=== PATIENT | female | born 1965 | race American Indian/Alaskan Native ===

== ENCOUNTER 2020-07-28 18:48 | Observation (INO) | payer OTHER ==
[2020-07-28] MEDS ORDERED: ASPIRIN 325 MG TAB PO ONE (19:39)
[2020-07-28 20:11] LABS: Basophils # (Auto) 0.1 K/mm3 (0.0-0.1); Basophils % (Auto) 0.6 % (0.0-1.8); Eosinophils # (Auto) 0.2 K/mm3 (0.0-0.4); Eosinophils % (Auto) 1.4 % (0.0-4.3); Hematocrit 42.7 % (30.3-42.9); Hemoglobin 14.2 gm/dl (10.1-14.3); Lymphocytes # (Auto) 2.2 K/mm3 (1.2-5.4); Lymphocytes % (Auto) 19.7 % (13.4-35.0); Mean Corpuscular HGB Conc 33 % (30-34); Mean Corpuscular Volume 88 fl (79-97); Monocytes # (Auto) 0.9 K/mm3 (0.0-0.8); Monocytes % (Auto) 7.9 % (0.0-7.3); Platelet Count 308 K/mm3 (140-440); Red Blood Count 4.87 M/mm3 (3.65-5.03); Red Cell Distribution Width 14.2 % (13.2-15.2)
--- NOTE | 2020-07-28 20:17 | XRay Report ---
CHEST 2 VIEWS INDICATION / CLINICAL INFORMATION: MAIN. Chest pain. FINDINGS: SUPPORT DEVICES: None. HEART / MEDIASTINUM: No significant abnormality. LUNGS / PLEURA: No significant pulmonary or pleural abnormality. No pneumothorax. ADDITIONAL FINDINGS: No significant additional findings. IMPRESSION: 1. No acute findings. Signer Name: Dorian Cassidy MD Signed: 07/28/2020 8:13 PM Workstation Name: [id number]
[2020-07-28 20:34] LABS: BUN/Creatinine Ratio 20; Blood Urea Nitrogen 16 mg/dL (7-17); Calcium 9.5 mg/dL (8.4-10.2); Hemolysis Index 1
--- NOTE | 2020-07-28 21:09 | Emergency Department Report ---
HPI - General Chief Complaint: Chest Pain Time Seen by Provider: 07/28/20 20:38 - HPI HPI: Room 21 The patient is a 54-year-old female present with a chief complaint of chest pressure. Patient states she is been having intermittent substernal chest pre ssure since March. Patient states her pressure is associated with shortness of breath, diaphoresis and nausea without vomiting. The patient went to her primary care physician's office today and mentioned the pain. EKG performed at the primary physician's office shows possible Wellens sign and T wave inversions in the patient was sent to the ED for further management. Patient currently complains of chest pressure and gives a score of 5/10. Patient states she is never had a stress test or cardiac catheterization ED Past Medical Hx - Past Medical History Previous Medical History?: Yes Hx Hypertension: Yes - Surgical History Past Surgical History?: Yes Additional Surgical History: Ectopic - Family History Family history: no significant - Social History Smoking Status: Former Smoker (None x1 month) Substance Use Type: None (Denies illicit drug use) ED Review of Systems ROS: Stated complaint: ABNORMAL EKG Other details as noted in HPI Constitutional: diaphoresis Respiratory: shortness of breath, SOB with exertion Cardiovascular: chest pain Endocrine: no symptoms reported Gastrointestinal: nausea. denies: vomiting Physical Exam - Physical Exam Vital Signs: Vital Signs 07/28/20 19:37 Temperature 98.1 F Pulse Rate 81 Respiratory 18 Rate Blood Pressure 187/92 O2 Sat by Pulse 98 Oximetry Physical Exam: GENERAL: The patient is well-developed well-nourished female lying on stretcher not appearing to be in acute distress. [] HEENT: Normocephalic. Atraumatic. Extraocular motions are intact. Patient has moist mucous membranes. NECK: Supple. Trachea midline CHEST/LUNGS: Clear to auscultation. There is no respiratory distress noted. HEART/CARDIOVASCULAR: Regular. There is no tachycardia. There is no gallop rub or murmur. ABDOMEN: Abdomen is soft, nontender. Patient has normal bowel sounds. There is no abdominal distention. SKIN: There is no rash. There is no edema. There is no diaphoresis. NEURO: The patient is awake, alert, and oriented. The patient is cooperative. The patient has normal speech MUSCULOSKELETAL: There is no evidence of acute injury. ED Course Vital Signs 07/28/20 19:37 Temperature 98.1 F Pulse Rate 81 Respiratory 18 Rate Blood Pressure 187/92 O2 Sat by Pulse 98 Oximetry ED Medical Decision Making - Lab Data Result diagrams: 07/28/20 19:47 07/28/20 19:47 Laboratory Tests 07/28/20 07/28/20 19:47 19:47 WBC 11.4 H RBC 4.87 Hgb 14.2 Hct 42.7 MCV 88 MCH 29 MCHC 33 RDW 14.2 Plt Count 308 Lymph % (Auto) 19.7 [place] % (Auto) 7.9 H Eos % (Auto) 1.4 Baso % (Auto) 0.6 Lymph # 2.2 [place] # 0.9 H Eos # 0.2 Baso # 0.1 Seg Neutrophils % 70.4 H Seg Neutrophils # 8.0 H Sodium 142 Potassium 3.7 Chloride 105.0 Carbon Dioxide 23 Anion Gap 18 BUN 16 Creatinine 0.8 Estimated GFR > 60 BUN/Creatinine Ratio 20 Glucose 128 H Calcium 9.5 Troponin T < 0.010 - EKG Data -: EKG Interpreted by Me EKG shows normal: sinus rhythm Rate: normal - EKG Data When compared to previous EKG there are: previous EKG unavailable Interpretation: nonspecific ST-T wave kayode (T wave inversion in lead V3, possible Wellens sign V4, V5) - Radiology Data Radiology results: report reviewed (Chest x-ray), image reviewed (Chest x-ray) interpreted by me: Chest x-ray-no focal infiltrates, no pneumothorax, no foreign body Findings [facility] [address] [place] [address] XRay Report Signed Patient: ÓSCAR CHOI MR#: [id number] : 1965 Acct:[id number] Age/Sex: 54 / F ADM Date: 07/28/20 Loc: ED Attending Dr: Ordering Physician: ED MD MELISSA Date of Service: 07/28/20 Procedure(s): XR chest routine 2V Accession Number(s): [id number] cc: ED MD MELISSA Fluoro Time In Minutes: CHEST 2 VIEWS INDICATION / CLINICAL INFORMATION: MAIN. Chest pain. FINDINGS: SUPPORT DEVICES: None. HEART / MEDIASTINUM: No significant abnormality. LUNGS / PLEURA: No significant pulmonary or pleural abnormality. No pneumothorax. ADDITIONAL FINDINGS: No significant additional findings. IMPRESSION: 1. No acute findings. Signer Name: Dorian Cassidy MD Signed: 07/28/2020 8:13 PM Workstation Name: [id number] Transcribed By: BC Dictated By: Dorian Cassidy MD Electronically Authenticated By: Dorian Cassidy MD Signed Date/Time: 07/28/202012 DD/ 12 TD/TT: - Differential Diagnosis ACS, pericarditis, GERD Critical care attestation.: If time is entered above; I have spent that time in minutes in the direct care of this critically ill patient, excluding procedure time. ED Disposition Clinical Impression: Chest pain, T wave inversion in EKG Disposition: OP ADMIT IP TO THIS HOSP Is pt being admited?: Yes Does the pt Need Aspirin: Yes Condition: Fair Instructions: Chest Pain (ED) Time of Disposition: 21:13 (Hospitalist paged (Dr Collins))
[2020-07-28] MEDS ORDERED: ONDANSETRON 4 MG/2 ML INJ IV ONE (21:12)
[2020-07-28] MEDS ORDERED: NITROGLYCERIN 2% OINT 1 GM TP ONE (21:12)
[2020-07-28] MEDS ORDERED: fentaNYL 100 MCG/2 ML INJ IV ONE ×2 (21:12→22:30)
[2020-07-28] MEDS ORDERED: fentaNYL 100 MCG/2 ML INJ ONE (22:30)
[2020-07-28] MEDS ORDERED: ACETAMINOPHEN 325 MG TAB PO PRN (22:45)
[2020-07-28] MEDS ORDERED: MORPHINE 4 MG/1 ML INJ IV PRN (22:45)
[2020-07-28] MEDS ORDERED: ONDANSETRON 4 MG/2 ML INJ IV PRN (22:45)
[2020-07-28] MEDS ORDERED: MAGNESIUM HYDROXIDE (MOM) ORAL LIQD UDC PO PRN (22:45)
--- NOTE | 2020-07-28 22:59 | History and Physical Report ---
History of Present Illness Date of examination: 07/28/20 Date of admission: 07/28/20 21:34 Chief complaint: Chest pain History of present illness: 54-year-old -[place] female with history of hypertension and a former smoker presenting to the emergency room today complaining of chest pain. Chest pain felt like pressure was substernal and has been intermittent for about 3 months. Pain got worse today and decided to report to the emergency room. She has had associated shortness of breath nausea and diaphoresis. She denies any vomiting, no fever or chills, no headache or dizziness. There is no no relieving or exacerbating factor. Patient went to her primary care physician office today and a chest pain was evaluated. EKG done showed some abnormality with possible Wellens sign and T wave inversion and thereafter was sent to the emergency room for further evaluation. On a scale of 10 pain was said to be about 5/10 in severity. Work-up in the emergency room so far has been unremarkable. Patient has not had any cardiac work-up in the past. Past History Past Medical History: hypertension Past Surgical History: Other (Surgery for Ectopic ) Social history: smoking (Former Smoker) Family history: hypertension (Grand Mother) Medications and Allergies Allergies Allergy/AdvReac Type Severity Reaction Status Date / Time bee pollen Allergy Anaphylaxis Verified 07/28/20 19:39 Review of Systems Constitutional: no fever, no chills Ears, nose, mouth and throat: no nasal congestion, no sore throat Respiratory: no cough, no shortness of breath Gastrointestinal: no abdominal pain, no nausea, no vomiting, no diarrhea Genitourinary Female: no pelvic pain, no flank pain, no dysuria Musculoskeletal: no neck pain, no low back pain Integumentary: no rash, no pruritis Neurological: no headaches, no confusion Exam - Constitutional Vitals: Temp Pulse Resp BP Pulse Ox 98.1 F 80 18 177/105 98 07/28/20 19:37 07/28/20 21:32 07/28/20 19:37 07/28/20 21:32 07/28/20 19:37 General appearance: Present: no acute distress, well-nourished - EENT Eyes: Present: PERRL, EOM intact, scleral icterus ENT: hearing intact, clear oral mucosa, dentition normal - Neck Neck: Present: supple, normal ROM - Respiratory Respiratory effort: normal Respiratory: bilateral: CTA - Cardiovascular Rhythm: regular Heart Sounds: Present: S1 & S2. Absent: gallop, systolic murmur, diastolic murmur, rub - Extremities Extremities: no ischemia, pulses intact, pulses symmetrical, No edema, Full ROM Peripheral Pulses: within normal limits - Abdominal General gastrointestinal: Present: soft, non-tender, non-distended, normal bowel sounds. Absent: mass - Integumentary Integumentary: Present: clear, warm, dry. Absent: rash - Musculoskeletal Musculoskeletal: strength equal bilaterally - Psychiatric Psychiatric: appropriate mood/affect, intact judgment & insight, memory intact, cooperative - Neurologic Neurologic: CNII-XII intact, no focal deficits, moves all extremities HEART Score - HEART Score History: Slightly suspicious EKG: Non-specific Age: 45-65 Risk factors: 1-2 risk factors Troponin: Troponin T < 0.010 ng/mL (0.00-0.029) 07/28/20 19:47 Troponin: < normal limit (Heart Score =2) HEART Score: 3 Results - Labs CBC & Chem 7: 07/28/20 23:36 07/28/20 23:36 Labs: Abnormal lab results 07/28/20 07/28/20 Range/Units 19:47 19:47 WBC 11.4 H (4.5-11.0) K/mm3 [place] % (Auto) 7.9 H (0.0-7.3) % [place] # 0.9 H (0.0-0.8) K/mm3 Seg Neutrophils % 70.4 H (40.0-70.0) % Seg Neutrophils # 8.0 H (1.8-7.7) K/mm3 Glucose 128 H (65-100) mg/dL Assessment and Plan - Patient Problems (1) Chest pain Current Visit: Yes Status: Acute Plan to address problem: Patient admitted and placed on telemetry. Will check serial cardiac enzymes. Patient placed on aspirin, sublingual nitroglycerin and IV morphine as needed for chest pain. Patient will be scheduled for stress test. We will place a consult to cardiology for further evaluation. (2) T wave inversion in EKG Current Visit: Yes Status: Acute Plan to address problem: We will monitor EKG and await further evaluation by cardiology. (3) DVT prophylaxis Current Visit: Yes Status: Acute Plan to address problem: Patient placed on subcutaneous Lovenox. (4) Full code status Current Visit: Yes Status: Acute
[2020-07-29 00:09] LABS: BUN/Creatinine Ratio 18; Blood Urea Nitrogen 16 mg/dL (7-17); Calcium 9.2 mg/dL (8.4-10.2); Hemolysis Index 5
[2020-07-29 00:56] LABS: Hematocrit 42.7 % (30.3-42.9); Mean Corpuscular HGB Conc 33 % (30-34); Mean Corpuscular Volume 92 fl (79-97); Platelet Count 246 K/mm3 (140-440); Red Blood Count 4.63 M/mm3 (3.65-5.03); Red Cell Distribution Width 13.9 % (13.2-15.2)
[2020-07-29] MEDS: ACETAMINOPHEN 325 MG TAB PO PRN ×3 (01:01→14:45)
[2020-07-29 03:46] LABS: Chol/HDL Ratio 2.8 %
[2020-07-29 08:09] LABS: Basophils # (Auto) 0.1 K/mm3 (0.0-0.1); Basophils % (Auto) 0.9 % (0.0-1.8); Eosinophils # (Auto) 0.3 K/mm3 (0.0-0.4); Eosinophils % (Auto) 3.4 % (0.0-4.3); Hematocrit 38.6 % (30.3-42.9); Lymphocytes # (Auto) 2.3 K/mm3 (1.2-5.4); Lymphocytes % (Auto) 28.5 % (13.4-35.0); Mean Corpuscular HGB Conc 34 % (30-34); Mean Corpuscular Volume 90 fl (79-97); Platelet Count 259 K/mm3 (140-440); Red Cell Distribution Width 13.7 % (13.2-15.2)
[2020-07-29 08:17] LABS: INR 0.98 (0.87-1.13)
[2020-07-29] MEDS ORDERED: REGADENOSON 0.4 MG/5 ML INJ IV ONE ×2 (08:25→08:30)
[2020-07-29 08:33] LABS: BUN/Creatinine Ratio 21; Blood Urea Nitrogen 23 mg/dL (7-17); Calcium 8.9 mg/dL (8.4-10.2); Hemolysis Index 5
--- NOTE | 2020-07-29 13:37 | Consultation ---
History of Present Illness Consult date: 07/29/20 Consult reason: chest pain, hypertension History of present illness: This patient is a 54-year-old woman with a long history of hypertension, which she states has been poorly managed in the outpatient setting largely due to her noncompliance. She states that yesterday, she finally went to doctor's office specifically to get refills for her blood pressure management. During her visit to the doctors, she reported some intermittent, atypical non-exertional chest pain which she states is of longstanding, this prompted an EKG and a recommendation for ambulance transfer to the emergency room. The patient was otherwise well, and since admission he has had no chest pain, no shortness of breath and no cardiac complaints. The ECG done in the primary doctor's office as well as in the hospital showing normal sinus rhythm with nonspecific anterior T wave changes. Today, after a rule out OR protocol, she was recommended to undergo a Lexiscan thallium stress test. An echocardiogram also ordered by the medical service shows normal left ventricular systolic function with ejection fraction 60 to 65%, mild to moderate concentric left ventricular hypertrophy consistent with her chronic hypertension, no significant valvular abnormalities. Past History Past Medical History: hypertension Past Surgical History: Other (Surgery for Ectopic ) Social history: smoking (Former Smoker) Family history: hypertension (Grand Mother) Medications and Allergies Allergies Allergy/AdvReac Type Severity Reaction Status Date / Time bee pollen Allergy Anaphylaxis Verified 07/28/20 19:39 Active Meds: Active Medications Acetaminophen (Tylenol) 650 mg PO Q4H PRN PRN Reason: Pain MILD(1-3)/Fever >100.5/VALENZUELA Last Admin: 07/29/20 04:46 Dose: 650 mg Documented by: Aspirin (Ecotrin) 325 mg PO QDAY VENESSA Enoxaparin Sodium (Enoxaparin) 40 mg SUB-Q QDAY@2200 VENESSA; Protocol Magnesium Hydroxide (Milk Of Magnesia) 30 ml PO Q4H PRN PRN Reason: Constipation Morphine Sulfate (Morphine) 2 mg IV Q5MIN PRN PRN Reason: Chest Pain Nitroglycerin (Nitrostat) 0.4 mg SL Q5M PRN PRN Reason: Chest Pain Ondansetron HCl (Zofran) 4 mg IV Q8H PRN PRN Reason: Nausea And Vomiting Sodium Chloride (Sodium Chloride Flush Syringe 10 Ml) 10 ml IV BID VENESSA Sodium Chloride (Sodium Chloride Flush Syringe 10 Ml) 10 ml IV PRN PRN PRN Reason: LINE FLUSH Review of Systems Cardiovascular: chest pain, no orthopnea, no palpitations, no rapid/irregular heart beat, no edema, no syncope, no lightheadedness, no shortness of breath Physical Examination Vital Signs Temp Pulse Resp BP Pulse Ox 98.1 F 81 18 187/92 98 07/28/20 19:37 07/28/20 19:37 07/28/20 19:37 07/28/20 19:37 07/28/20 19:37 General appearance: no acute distress HEENT: Positive: PERRL Neck: Positive: neck supple Cardiac: Positive: Reg Rate and Rhythm Lungs: Positive: Decreased Breath Sounds Neuro: Positive: Grossly Intact Abdomen: Positive: Soft Female genitourinary: deferred Skin: Positive: Clear Extremities: Absent: edema Results 07/29/20 07:14 07/29/20 07:14 Coagulation 07/29/20 Range/Units 07:14 PT 13.1 (12.2-14.9) Sec. INR 0.98 (0.87-1.13) Lipids 07/28/20 Range/Units 23:36 Triglycerides 98 (2-149) mg/dL Cholesterol 154 (50-199) mg/dL HDL Cholesterol 55 (40-59) mg/dL Cholesterol/HDL Ratio 2.80 % CBC 07/28/20 07/28/20 07/29/20 Range/Units 19:47 23:36 07:14 WBC 11.4 H 10.3 8.0 (4.5-11.0) K/mm3 RBC 4.87 4.63 4.30 (3.65-5.03) M/mm3 Hgb 14.2 14.0 13.0 (10.1-14.3) gm/dl Hct 42.7 42.7 38.6 (30.3-42.9) % Plt Count 308 246 259 (140-440) K/mm3 Lymph # 2.2 Strategic Debriefing Specialist 2.3 (1.2-5.4) K/mm3 [place] # 0.9 H Strategic Debriefing Specialist 1.0 H (0.0-0.8) K/mm3 Eos # 0.2 Strategic Debriefing Specialist 0.3 (0.0-0.4) K/mm3 Baso # 0.1 Strategic Debriefing Specialist 0.1 (0.0-0.1) K/mm3 Comprehensive Metabolic Panel 07/28/20 07/28/20 07/29/20 Range/Units 19:47 23:36 07:14 Sodium 142 141 141 (137-145) mmol/L Potassium 3.7 3.7 4.0 (3.6-5.0) mmol/L Chloride 105.0 104.6 103.0 (98-107) mmol/L Carbon Dioxide 23 22 26 (22-30) mmol/L BUN 16 16 23 H (7-17) mg/dL Creatinine 0.8 0.9 1.1 (0.6-1.2) mg/dL Glucose 128 H 161 H 92 (65-100) mg/dL Calcium 9.5 9.2 8.9 (8.4-10.2) mg/dL EKG interpretations - Telemetry EKG Rhythm: Sinus Rhythm Assessment and Plan - Patient Problems (1) Abnormal ECG Current Visit: Yes Status: Acute Plan to address problem: Patient's nonspecific T wave abnormalities on ECG likely due to repolarization changes of left ventricular hypertrophy. We will proceed with a Lexiscan thallium stress test as ordered, for further evaluation. (2) Atypical chest pain Current Visit: Yes Status: Acute Plan to address problem: Chest pain is atypical, of longstanding, we will proceed with a Lexiscan thallium stress test for further assessment. (3) Chronic hypertension Current Visit: Yes Status: Acute Plan to address problem: Recommend optimal medical therapy for blood pressure control and management.
[2020-07-29] MEDS: ASPIRIN EC 325 MG TAB PO SCH (14:45)
[2020-07-29] MEDS: NITROGLYCERIN 0.4 MG TAB SUBL SL PRN ×2 (17:47→21:05)
--- NOTE | 2020-07-29 18:39 | Progress Note ---
Assessment and Plan - Patient Problems (1) Abnormal ECG Current Visit: Yes Status: Acute Plan to address problem: Patient abnormal EKG with some T wave inversions. Echocardiogram unremarkable. Scheduled to have Lexiscan done. Discharge patient after results. (2) Atypical chest pain Current Visit: Yes Status: Acute Plan to address problem: Currently chest pain-free no shortness of breath no nausea no vomiting. Cardiac isoenzymes unremarkable. Blood pressure has maintained optimal control today. (3) Chronic hypertension Current Visit: Yes Status: Acute Plan to address problem: Patient blood pressure has been well controlled without medications today 127/85. Will advance medications as tolerated. Subjective Date of service: 07/29/20 Principal diagnosis: Chest pain Interval history: Patient 54-year-old with a history of hypertension tobacco presents with atypical chest pain associated with some shortness of breath diaphoresis and nausea. Patient relates to being noncompliant with medications. Patient went to primary care physician was found to have abnormal EKG. Patient therefore sent to the ED. Upon evaluation patient did not have any pain denies shortness of breath denied dyspnea on exertion. Was placed on aspirin and work-up for Lexiscan and echocardiogram. Patient initial enzymes negative and no changes on access clerk. Objective - Constitutional Vitals: Vital Signs - 12hr 07/29/20 07/29/20 07/29/20 07:36 11:41 12:47 Temperature 97.9 F Pulse Rate 79 Respiratory 18 Rate Blood Pressure 116/71 129/82 117/78 O2 Sat by Pulse 96 Oximetry 07/29/20 07/29/20 07/29/20 12:50 12:51 12:52 Temperature Pulse Rate Respiratory Rate Blood Pressure 125/77 116/69 127/76 O2 Sat by Pulse Oximetry 07/29/20 07/29/20 07/29/20 12:54 12:55 16:23 Temperature 98.2 F Pulse Rate 97 H Respiratory 18 Rate Blood Pressure 122/74 135/67 127/63 O2 Sat by Pulse 97 Oximetry 07/29/20 17:47 Temperature Pulse Rate 97 H Respiratory Rate Blood Pressure 127/63 O2 Sat by Pulse Oximetry General appearance: Present: no acute distress, well-nourished - EENT Eyes: PERRL, EOM intact ENT: hearing intact, clear oral mucosa Ears: bilateral: normal - Neck Neck: supple, normal ROM - Respiratory Respiratory effort: normal Respiratory: bilateral: CTA - Breasts Breasts: normal - Cardiovascular Rhythm: regular Heart Sounds: Present: S1 & S2. Absent: gallop, rub Extremities: pulses intact, No edema, normal color, Full ROM - Gastrointestinal General gastrointestinal: Present: soft, non-tender, non-distended, normal bowel sounds - Genitourinary Female genitourinary: normal - Integumentary Integumentary: clear, warm, dry - Musculoskeletal Musculoskeletal: 1, strength equal bilaterally - Neurologic Neurologic: moves all extremities - Psychiatric Psychiatric: memory intact, appropriate mood/affect, intact judgment & insight - Labs CBC & Chem 7: 07/29/20 07:14 07/29/20 07:14 Labs: Abnormal lab results 07/28/20 07/28/20 07/28/20 Range/Units 19:47 19:47 23:36 WBC 11.4 H (4.5-11.0) K/mm3 [place] % (Auto) 7.9 H (0.0-7.3) % [place] # 0.9 H (0.0-0.8) K/mm3 Seg Neutrophils % 70.4 H (40.0-70.0) % Seg Neutrophils # 8.0 H (1.8-7.7) K/mm3 BUN (7-17) mg/dL Glucose 128 H 161 H (65-100) mg/dL 07/29/20 07/29/20 Range/Units 07:14 07:14 WBC (4.5-11.0) K/mm3 [place] % (Auto) 12.0 H (0.0-7.3) % [place] # 1.0 H (0.0-0.8) K/mm3 Seg Neutrophils % (40.0-70.0) % Seg Neutrophils # (1.8-7.7) K/mm3 BUN 23 H (7-17) mg/dL Glucose (65-100) mg/dL HEART Score - HEART Score EKG: Non-specific Age: 45-65 Risk factors: 1-2 risk factors Troponin: Troponin T < 0.010 ng/mL (0.00-0.029) 07/29/20 07:14 Troponin: < normal limit (Heart Score =2)
--- NOTE | 2020-07-29 21:42 | Treadmill Report ---
THALLIUM STRESS TEST LEFT VENTRICLE: Left ventricular chamber size is within normal spread. Perfusion study demonstrates homogeneous uptake of the tracer in all segments, no defects identified. There is normal apical thinning. Gated analysis demonstrates normal left ventricular systolic function with ejection fraction 70%. CONCLUSION: Normal myocardial perfusion study. JOB# [id number] CA/NTS
[2020-07-29] MEDS ORDERED: ENOXAPARIN 40 MG/0.4 ML INJ SUB-Q SCH (22:00)
[2020-07-30] MEDS ORDERED: NITROGLYCERIN 2% OINT 1 GM TP ONE (00:19)
[2020-07-30] MEDS: ACETAMINOPHEN 325 MG TAB PO PRN ×2 (01:56→10:14)
[2020-07-30 04:35] VITALS: BP 135/83
[2020-07-30] MEDS: ASPIRIN EC 325 MG TAB PO SCH (10:16)
--- NOTE | 2020-07-30 10:32 | Discharge Summary ---
Providers - Providers Date of Admission: 07/28/20 21:34 Date of discharge: 07/30/20 Attending physician: JOSUE BLAS 07/28/20 22:46 Consult to Cardiology [CONS] Routine Consulting Provider: KHUSHBU WEST Reason For Exam: chest pain Primary care physician: [facility] Hospitalization Condition: Good Hospital course: Patient presented with some shortness of breath and abnormal EKG. Presented to ER follow-up for abnormal EKG. Patient was ruled out via cardiac isoenzymes. Patient also had echocardiogram which was unremarkable ejection fraction 66 5%. Patient had Lexiscan that was done was unremarkable as well. Patient atypical chest pain thought to be secondary to gastroesophageal reflux disease. Patient will be given prescription for PPI. She already has a prescription for PPI. Will fill this at the clinic. [facility] medical clinic. Disposition: TO HOME OR SELFCARE - Discharge Diagnoses (1) Abnormal ECG Status: Acute Comment: Normal Lexiscan. Unremarkable echocardiogram. Noncardiac. (2) Atypical chest pain Status: Resolved (3) Chronic hypertension Status: Acute Comment: Patient explained she should be more compliant with her medications. She has prescription for lisinopril that she will continue. Core Measure Documentation - Palliative Care Palliative Care/ Comfort Measures: Not Applicable - Core Measures Any of the following diagnoses?: none Exam - Constitutional Vitals: Temp Pulse Resp BP Pulse Ox 98.2 F 88 18 135/83 95 07/30/20 04:04 07/30/20 04:04 07/30/20 04:04 07/30/20 04:04 07/30/20 04:04 General appearance: Present: no acute distress, well-nourished - EENT Eyes: Present: PERRL ENT: hearing intact, clear oral mucosa - Neck Neck: Present: supple, normal ROM - Respiratory Respiratory effort: normal Respiratory: bilateral: CTA - Cardiovascular Heart Sounds: Present: S1 & S2. Absent: rub, click - Extremities Extremities: pulses symmetrical, No edema Peripheral Pulses: within normal limits - Abdominal General gastrointestinal: Present: soft, non-tender, non-distended, normal bowel sounds Female genitourinary: Present: normal - Integumentary Integumentary: Present: clear, warm, dry - Musculoskeletal Musculoskeletal: gait normal, strength equal bilaterally - Psychiatric Psychiatric: appropriate mood/affect, intact judgment & insight - Neurologic Neurologic: CNII-XII intact, moves all extremities Plan Activity: no restrictions Weight Bearing Status: Full Weight Bearing Diet: low cholesterol Follow up with: SHEILA TAO [Other] - 7 Days Prescriptions: Aspirin EC [Ecotrin] 325 mg PO QDAY #20 tablet
== END 2020-07-30 14:08 | disposition home or self-care (01) ==
LOC: ED 18:48 → 4A 21:34
PROVIDERS: ADMIT Internal Medicine Geriatric Medicine; ATTEND Internal Medicine
DX: R07.2 Precordial pain (principal); R94.31 Abnormal electrocardiogram [ECG] [EKG]; I10 Essential (primary) hypertension; Z87.891 Personal history of nicotine dependence; Z98.890 Other specified postprocedural states
CPT/HCPCS: 36415; 71046; 78452; 80048; 80061; 84484; 85025; 85610; 93005; 93017; 93306; 96372; 96374; 96375; 96376; 99285; A9502; G0378; J1650; J2405; J2785; J3010; 87641